=== PATIENT | male | born 1995 | race Caucasian/White ===

== ENCOUNTER 2017-12-24 12:31 | Emergency (ER) | payer OTHER ==
[~2017-12-24] VITALS: Ht 182.9 cm; Wt 81.8 kg
[2017-12-24 12:48] VITALS: BP 132/85; TEMP 98
[2017-12-24 15:18] VITALS: PULSE 66
== END 2017-12-24 15:21 | disposition home or self-care (01) ==
LOC: COL.ER 12:31
DX: S01.81XA Laceration without foreign body of other part of head, initial encounter (principal); Z23 Encounter for immunization; W22.8XXA Striking against or struck by other objects, initial encounter

== ENCOUNTER 2017-12-30 14:50 | Emergency (ER) | payer OTHER ==
[2017-12-30 14:56] VITALS: BP 122/73; PULSE 88; TEMP 98.4
== END 2017-12-30 15:15 | disposition home or self-care (01) ==
LOC: COL.ER 14:50
DX: S01.81XD Laceration without foreign body of other part of head, subsequent encounter (principal); X58.XXXD Exposure to other specified factors, subsequent encounter